=== PATIENT | male | born 1985 | race Caucasian/White ===

== ENCOUNTER 2024-05-14 17:06 | Emergency (ER) | payer OTHER ==
[~2024-05-14] VITALS: Ht 188 cm; Wt 115.7 kg
[2024-05-14] MEDS ORDERED: CEFAZOLIN 1 G VIAL ONE (18:35)
[2024-05-14] MEDS: IV NS 1000 ML 1,000 ML IV ONE (18:49)
[2024-05-14] MEDS: CEFAZOLIN 1 G in IV DEXTROSE 5% 50 ML IV ONE (18:49)
[2024-05-14 18:56] LABS: BASOPHILS # (AUTO) 0.1 K/UL (0.0-0.2); BASOPHILS % (AUTO) 0.8 % (0.0-2.0); EOSINOPHILS # (AUTO) 0.2 K/uL (0.0-0.7); EOSINOPHILS % (AUTO) 1.5 % (0.0-7.0); HEMATOCRIT 45.8 % (36.7-47.1); HEMOGLOBIN 15.2 g/dL (12.5-16.3); LYMPHOCYTES # (AUTO) 2.2 K/uL (0.8-4.8); LYMPHOCYTES % (AUTO) 19.8 % (20.5-51.5); MEAN CORPUSCULAR HEMOGLOBIN 29.7 uug (23.8-33.4); MEAN CORPUSCULAR HGB CONC 33 g/dL (32.5-36.3); MEAN CORPUSCULAR VOLUME 89.3 fL (73.0-96.2); MONOCYTES # (AUTO) 1.6 K/uL (0.1-1.30); MONOCYTES % (AUTO) 14.3 % (0.0-11.0); NEUTROPHILS # (AUTO) 6.9 K/uL (1.8-8.9); NEUTROPHILS % (AUTO) 63.6 % (38.5-71.5); PLATELET COUNT (AUTO) 199 K/uL (152-348); RED BLOOD CELL COUNT(AUTO) 5.13 MIL/uL (4.06-5.63); RED CELL DISTRIBUTION WIDTH 14.1 % (12.1-16.2); WHITE BLOOD COUNT (AUTO) 10.9 K/uL (3.6-10.2)
[2024-05-14 19:00] LABS: DIFFERENTIAL COMMENT 1
[2024-05-14 19:05] LABS: CALCIUM 9.7 mg/dL (8.5-10.1); CARBON DIOXIDE 27 mmol/L (21-32); CHLORIDE 98 mmol/L (98-107); CREATININE 1.2 mg/dL (0.6-1.3); GLUCOSE 99 mg/dL (74-106); POTASSIUM 3.5 mmol/L (3.5-5.1); SODIUM SERUM 137 mmol/L (136-145); UREA NITROGEN, BLOOD 25 mg/dL (7-18)
[2024-05-14 19:08] LABS: ETHANOL < 3 MG/DL (0-10)
[2024-05-14 19:19] LABS: ALANINE AMINOTRANSFERASE 83 U/L (16-63); ALBUMIN 4.2 g/dL (3.4-5.0); ALKALINE PHOSPHATASE 116 U/L (50-136); ASPARTATE AMINOTRANSFERASE 91 U/L (15-37); BILIRUBIN,TOTAL 1.7 mg/dL (0.2-1.0); TOTAL PROTEIN, SERUM 8.2 g/dL (6.4-8.2)
[2024-05-14] MEDS ORDERED: CEPH500T PO (22:31)
[2024-05-14] MEDS: HYDROCODONE/APAP 10-325 MG TABLET PO ONE (22:44)
[2024-05-14] MEDS ORDERED: HYDROCODONE/APAP 10-325 MG TABLET ONE (22:45)
[2024-05-15 00:35] VITALS: BP 110/77; TEMP 98.1; O2SAT 98
== END 2024-05-15 00:35 | disposition home or self-care (01) ==
LOC: ER 17:07
DX: S41.131A Puncture wound without foreign body of right upper arm, initial encounter (principal); S71.032A Puncture wound without foreign body, left hip, initial encounter; F32.A Depression, unspecified; Z88.1 Allergy status to other antibiotic agents; W34.09XA Accidental discharge from other specified firearms, initial encounter; Y93.89 Activity, other specified; Y92.89 Other specified places as the place of occurrence of the external cause; Y99.8 Other external cause status
CPT/HCPCS: 80053; 85025; 36415; 70360; 71045; 72170; 73060; 74018; 99284; 96365; 80320; J0690; A4606; A4663; G0480